=== PATIENT | male | born 1960 | race Caucasian/White ===

== ENCOUNTER 2021-04-19 00:56 | Emergency (ER) | payer OTHER ==
[~2021-04-19] VITALS: Ht 182.9 cm; Wt 77.2 kg
--- NOTE | 2021-04-19 01:30 | PHYS DOC ---
Past History Past Medical History: Hypertension Alcohol Use: Heavy Adult General Chief Complaint Chief Complaint: ALCOHOL INTOXICATION HPI HPI Patient is a very pleasant 61-year-old male with a past medical history significant for colon cancer, status post colon resection with colostomy bag and alcohol intoxication who presents to the emergency department via EMS for suicidal ideation. Patient states he has had a really rough last year with just generalized social situations and family situations that is caused some anxiety and depression. States over the last 30 days he has had fleeting thoughts of committing suicide with fleeting thoughts of using a firearm to do this. Patient states that this bothers him and it scary because he does not want to be but is still having these thoughts. States he came into the emergency department tonight for help. States he wanted to go to the [facility] but they turned him in the ambulance away. Denies any homicidal ideation, or hallucinations. States that he did drink some alcohol today in an attempt to try to numb the way he feels. Denies any recent traumas, travels, chest pain, shortness of breath, abdominal pain, nausea, vomiting, dysuria, hematuria or blood in the stool. States he otherwise feels well. Review of Systems Review of Systems Review of systems otherwise unremarkable except noted in HPI Allergies Allergies Allergies Coded Allergies Type Severity Reaction Last Updated Verified No Known Drug Allergies 04/19/21 No Physical Exam Physical Exam Constitutional: Well developed, well nourished, no acute distress, non-toxic appearance. [] HENT: Normocephalic, atraumatic, bilateral external ears normal, oropharynx moist, no oral exudates, nose normal. [] Eyes: conjunctiva normal, no discharge. [] Neck: Normal range of motion, no tenderness, supple, no stridor. [] Cardiovascular:Heart rate regular rhythm, no murmur [] Lungs & Thorax: Bilateral breath sounds clear to auscultation [] Abdomen: Bowel sounds normal, soft, no tenderness, ostomy bag with brown stool, no masses, no pulsatile masses. [] Skin: Warm, dry, no erythema, no rash. [] Back: No tenderness, no CVA tenderness. [] Extremities: No tenderness, no cyanosis, no clubbing, ROM intact, no edema. [] Neurologic: Alert and oriented X 3, normal motor function, normal sensory function, no focal deficits noted. [] Psychologic: Affect tearful, intermittent thoughts of suicidal ideation and intermittent plans of using a firearm to do this. Patient states however that he really does not want to be and it scares him to have his thoughts and wants to talk to somebody about it. Current Patient Data Vital Signs Vital Signs Date Time Temp Pulse Resp B/P (MAP) Pulse Ox O2 Delivery O2 Flow Rate FiO2 04/19/21 01:10 98.0 98 18 148/70 (96) 98 Room Air EKG EKG [] Radiology/Procedures Radiology/Procedures [] Heart Score C/O Chest Pain: No Risk Factors: Risk Factors: DM, Current or recent (<one month) smoker, HTN, HLP, family history of CAD, obesity. Risk Scores: Risk Factors: DM, Current or recent (<one month) smoker, HTN, HLP, family history of CAD, obesity. Course & Med Decision Making Course & Med Decision Making Patient is a 61-year-old male who presents with a chief complaint of anxiety, depression and intermittent suicidal ideations and thoughts of using a firearm to commit suicide Vital signs not concerning. Physical exam noted above. Psychiatric assessment team made aware patient and evaluated patient. Laboratory analysis not concerning. Toxicology notable for alcohol level of 345. Covid negative. PAT team discussed patient with [facility] who agreed to accept patient for continued evaluation and treatment of anxiety/depression and SI. Patient grateful, verbalized understanding and agreed with plan of transfer. Patient given meal in ED. [] Dragon Disclaimer Dragon Disclaimer This electronic medical record was generated, in whole or in part, using a voice recognition dictation system. Departure Departure: Impression: Primary Impression: Suicidal ideation Additional Impressions: Anxiety Depression Alcohol abuse [facility] Condition: GOOD Problem Qualifiers MEHUL OCHOA MD Apr 19, 2021 01:30
[2021-04-19 02:52] LABS: BASO # 0.1 x10^3/uL (0.0-0.2); BASO % 1 % (0-3); EOS # 0.1 x10^3/uL (0.0-0.7); EOS % 1 % (0-3); HEMATOCRIT 45.9 % (39.0-53.0); HEMOGLOBIN 15.3 g/dL (13.0-17.5); LYMPH # 3.7 x10^3/uL (1.0-4.8); LYMPH % 49 % (24-48); MEAN CORPUSCULAR HEMOGLOBIN 31 pg (25-35); MEAN CORPUSCULAR HGB CONC 33 g/dL (31-37); MEAN CORPUSCULAR VOLUME 92 fL (79-100); MONO # 0.5 x10^3/uL (0.0-1.1); MONO % 7 % (0-9); NEUT # 3.2 x10^3uL (1.8-7.7); NEUT % 42 % (31-73); PLATELET COUNT 276 x10^3/uL (140-400); RED BLOOD COUNT 5.02 x10^6/uL (4.30-5.70); RED CELL DISTRIBUTION WIDTH 15.7 % (11.5-14.5); WHITE BLOOD COUNT 7.6 x10^3/uL (4.0-11.0)
[2021-04-19 03:01] LABS: CALCIUM 7.9 mg/dL (8.5-10.1); CREATININE 0.8 mg/dL (0.7-1.3); GFR 98.3; POTASSIUM 3.7 mmol/L (3.5-5.1)
[2021-04-19 03:06] LABS: ALBUMIN 3.7 g/dL (3.4-5.0); ALBUMIN/GLOBULIN RATIO 0.8 (1.0-1.7); TOTAL BILIRUBIN 0.2 mg/dL (0.2-1.0); TOTAL PROTEIN 8.4 g/dL (6.4-8.2)
[2021-04-19 03:08] LABS: ETHANOL 345 mg/dL (0-10); SALIC 4.3 mg/dL (2.8-20.0)
[2021-04-19 03:09] LABS: ACETAMIN < 2.0 mcg/mL (10-30)
[2021-04-19 05:01] LABS: BARBITURATES NEG (NEG); BENZODIAZEPINES NEG (NEG); CANNABINOIDS NEG (NEG); COCAINE NEG (NEG); METHADONE NEG (NEG); OPIATES NEG (NEG); PHENCYCLIDINE NEG (NEG)
[2021-04-19 05:06] LABS: AMPHETAMINE/METHAMPHETAMINE NEG (NEG)
[2021-04-19 08:27] VITALS: BP 141/87
== END 2021-04-19 09:23 ==
LOC: ER 00:56
DX: R45.851 Suicidal ideations (principal); F32.9 Major depressive disorder, single episode, unspecified; F41.9 Anxiety disorder, unspecified; F10.10 Alcohol abuse, uncomplicated; I10 Essential (primary) hypertension; Z20.822 Contact with and (suspected) exposure to COVID-19; Y90.8 Blood alcohol level of 240 mg/100 ml or more
CPT/HCPCS: 36415; 80053; 80307; 80329; 85025; 87426; 99285; C9803; G0480; U0003

== ENCOUNTER 2021-07-15 20:08 | Emergency (ER) | payer OTHER ==
[~2021-07-15] VITALS: Ht 182.9 cm; Wt 80.0 kg
--- NOTE | 2021-07-15 21:29 | PHYS DOC ---
Past History Past Medical History: Hypertension Additional Past Medical Histor: fistula-abdominal Past Medical History Tremor's Torticolli Colon cancer status post surgery x3and chemotherapy Past Surgical History: Cancer Surgery, Colectomy, Other Additional Past Surgical Histo: colostomy; fistula from surgery Alcohol Use: Rarely General Adult EDM: Chief Complaint: TREMORS HPI: HPI: ". I think I had a syncope event.. I don't know how long.. " Patient is a 61 year old male who presents with hx of syncope and tremors. Patient has somewhat a complex medical history with diagnosis of colon cancer . Pt. underwent 3 cancer surgeries at and then a chemotherapy x1. Patient also had somewhat chronic torticollis and has been on Botox treatments. Patient has been feeling somewhat " under the weather" the last 2 days. Pt. has had Moderna x 2. No recent travel. No specific ill contacts. No history immunosuppression. Patient has past medical history of insomnia, essential tremor, alcohol dependence, psychoactive substance use, dental caries, torticollis, hypertension, hyperlipidemia, cervical neuropathy, sleep apnea, tobacco use, colon cancer, dehiscence of surgical wound, adjustment disorder, anxiety, hearing loss, tinnitus, cervical dystonia, colostomy fistula,,. Patient follows with [facility] for care. Patient also follows with at . Review of Systems: Review of Systems: Constitutional: Denies fever or chills Eyes: Denies change in visual acuity HENT: Denies nasal congestion or sore throat Respiratory: Denies cough or shortness of breath Cardiovascular: Denies chest pain or edema GI: Denies abdominal pain, nausea, vomiting, bloody stools or diarrhea : Denies dysuria Musculoskeletal: Denies back pain or joint pain Integument: Denies rash Neurologic: Denies headache, focal weakness or sensory changes. Complains of a syncopal episode Endocrine: Denies polyuria or polydipsia Lymphatic: Denies swollen glands Psychiatric: Denies depression or anxiety Family History: Family History: Noncontributory to presentation Current Medications: Current Meds: See nursing for home meds Allergies: Allergies: Allergies Coded Allergies Type Severity Reaction Last Updated Verified No Known Drug Allergies 04/19/21 No Physical Exam: PE: Constitutional: , no acute distress, non-toxic appearance. [] HENT: Normocephalic, atraumatic, bilateral external ears normal, oropharynx moist, no oral exudates, nose normal. [] Eyes: PERRLA, EOMI, conjunctiva normal, no discharge. [] Neck: Limited range of motion, no tenderness, supple, no stridor. Chronic torticollis Cardiovascular: Tachycardia heart rate regular rhythm, no murmur [] Lungs & Thorax: Bilateral breath sounds equal apex few scattered wheezes au scultation [] Abdomen: Bowel sounds normal, soft, no tenderness, no masses, no pulsatile masses. Spine. Surgical scars. Skin: Warm, dry, no erythema, no rash. [] Back: No tenderness, no CVA tenderness. [] Extremities: No tenderness, no cyanosis, no clubbing, ROM intact, no edema. No cording appreciated Neurologic: Alert and oriented X 3, moves all extremities on request, does have a distal sensory,, no focal deficits noted. Persistent coarse tremor. Exacerbated by attempts at fine motor movement Psychologic: Affect anxious, judgement normal, mood normal. [] Current Patient Data: Vital Signs: Vital Signs Date Time Temp Pulse Resp B/P (MAP) Pulse Ox O2 Delivery O2 Flow Rate FiO2 07/15/21 20:10 99.0 94 24 135/78 (97) 97 Room Air EKG: EKG: My interpretation EKG shows a sinus rhythm 92 bpm. There is a wavering baseline but monitor does show a sinus rhythm. No findings of acute STEMI contralateral changes. Time of EKG is 2105 hrs. [] Radiology/Procedures: Radiology/Procedures: [][address] [address] IMAGING REPORT Signed PATIENT: YANIQUE COX ACCOUNT: [id number] : 1960 LOCATION: ER AGE: 61 SEX: M EXAM STATUS: REG ER ORD. PHYSICIAN: SOLOMON SHIELDS MD REASON: syncope, H/O SMOKING PROCEDURE: CHEST PA & LATERAL Exam: Chest 2 views INDICATION: Syncope TECHNIQUE: Frontal and lateral views the chest Comparisons: None FINDINGS: Right anterior chest wall port with catheter tip at the SVC. The cardiomediastinal silhouette and pulmonary vessels are within normal limits. Patchy bibasilar airspace disease. No pleural effusion. IMPRESSION: Patchy bilateral airspace disease may be infectious or inflammatory in etiology. Electronically signed by: Jose Lovell MD (07/15/2021 10:36 PM) MAR[facility] DICTATED AND SIGNED BY: JOSE LOVELL MD DATE: 07/15/21 485 CC: SOLOMON SHIELDS MD; NON,STAFF ~MTH0 0 [facility] [address] [place] [address] IMAGING REPORT Signed PATIENT: YANIQUE COX ACCOUNT: [id number] : 1960 LOCATION: ER AGE: 61 SEX: M EXAM STATUS: REG ER ORD. PHYSICIAN: SOLOMON SHIELDS MD REASON: neck pain, torcolis PROCEDURE: CT HEAD AND CERVICAL SPINE WO Exam: CT head and cervical spine without contrast INDICATION: Neck pain TECHNIQUE: Sequential axial images through the head and cervical spine were obtained without the administration of IV contrast. Exposure: One or more of the following in the visualized dose reduction techniques were utilized for this examination: 1. Automated exposure control 2. Adjustment of the MA and/or KV according to patient size 3. Use of iterative of reconstructive technique Comparisons: None FINDINGS: Head: No focal parenchymal lesion or hemorrhage is identified. There is no midline shift or sulcal effacement. No acute vascular territory infarction is identified. Tracy-white distinction is preserved. The ventricular system is within normal limits without compression hydrocephalus. The basal cisterns are well maintained. Mild mucosal thickening of the left maxillary sinus.. No acute fractures. Cervical spine: Vertebral body heights and alignment are well-maintained. Fracture through the cervical spine is is not identified. Multilevel spondylotic change in cervical spine with degenerative disc disease greatest at C3-C4, C4-C5 and C5-C6. Mild bilateral facet arthropathy is also noted in the cervical spine, greatest on the right at C3-C4, C4-C5 and C5-C6. Visualized paraspinal soft tissues are unremarkable. IMPRESSION: 1. No acute intracranial abnormality. Sinus disease as described above. 2. Negative CT C-spine for acute traumatic injury. Electronically signed by: Jose Lovell MD (07/15/2021 10:33 PM) MAR[facility]O DICTATED AND SIGNED BY: JOSE LOVELL MD DATE: 07/15/212229 CC: SOLOMON SHIELDS MD; NON,STAFF ~MTH0 0 Heart Score: C/O Chest Pain: No HEART Score for Chest Pain: HEART Score for Chest Pain Response (Comments) Value History Slighlty/Non-Suspicious 0 ECG Normal 0 Age >45 - < 65 1 Risk Factors 1 or 2 Risk Factors 1 Troponin < Normal Limit 0 Total 2 Risk Factors: Risk Factors: DM, Current or recent (<one month) smoker, HTN, HLP, family history of CAD, obesity. Risk Scores: Score 0 - 3: 2.5% MACE over next 6 weeks - Discharge Home Score 4 - 6: 20.3% MACE over next 6 weeks - Admit for Clinical Observation Score 7 - 10: 72.7% MACE over next 6 weeks - Early Invasive Strategies Course & Med Decision Making: Course & Med Decision Making Pertinent Labs and Imaging studies reviewed. (See chart for details) [facility] . [facility] Patient take a daily aspirin. Patient follow-up at neuro clinic. Keep follow-up for Botox injection. Review hypertensive meds with primary care. Return if any concerns. Impression: 1. Syncopal event 2. Essential tremor 3. Thrombocytopenia 110 4. History of colon cancer.-Resection x3 and chemotherapy 5. Hypertension 6. History of alcohol abuse [] Dragon Disclaimer: Dragon Disclaimer: This electronic medical record was generated, in whole or in part, using a voice recognition dictation system. Departure Departure: Referrals: NON,STAFF (PCP) Dragon Disclaimer This chart was dictated in whole or in part using Voice Recognition software in a busy, high-work load, and often noisy Emergency Department environment. It may contain unintended and wholly unrecognized errors or omissions. Dragon Disclaimer This chart was dictated in whole or in part using Voice Recognition software in a busy, high-work load, and often noisy Emergency Department environment. It may contain unintended and wholly unrecognized errors or omissions. SOLOMON SHIELDS MD Jul 15, 2021 21:29
--- NOTE | 2021-07-15 21:44 | EKG ---
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
[2021-07-15 22:26] LABS: BASO # 0.1 x10^3/uL (0.0-0.2); BASO % 1 % (0-3); EOS % 0 % (0-3); HEMATOCRIT 42.6 % (39.0-53.0); HEMOGLOBIN 14.4 g/dL (13.0-17.5); LYMPH # 1.9 x10^3/uL (1.0-4.8); LYMPH % 18 % (24-48); MEAN CORPUSCULAR HEMOGLOBIN 31 pg (25-35); MEAN CORPUSCULAR HGB CONC 34 g/dL (31-37); MEAN CORPUSCULAR VOLUME 91 fL (79-100); MONO # 0.6 x10^3/uL (0.0-1.1); MONO % 6 % (0-9); NEUT # 8.1 x10^3uL (1.8-7.7); NEUT % 76 % (31-73); PLATELET COUNT 326 x10^3/uL (140-400); RED BLOOD COUNT 4.69 x10^6/uL (4.30-5.70); RED CELL DISTRIBUTION WIDTH 14.3 % (11.5-14.5); WHITE BLOOD COUNT 10.7 x10^3/uL (4.0-11.0)
--- NOTE | 2021-07-15 22:35 | RAD ---
Exam: CT head and cervical spine without contrast INDICATION: Neck pain TECHNIQUE: Sequential axial images through the head and cervical spine were obtained without the admi nistration of IV contrast. Exposure: One or more of the following in the visualized dose reduction techniques were utilized for this examination: 1. Automated exposure control 2. Adjustment of the MA and/or KV according to patient size 3. Use of iterative of reconstructive technique Comparisons: None FINDINGS: Head: No focal parenchymal lesion or hemorrhage is identified. There is no midline shift or sulcal effaceme nt. No acute vascular territory infarction is identified. Tracy-white distinction is preserved. The ventricular system is within normal limits without compression hydrocephalus. The basal cisterns are well maintained. Mild mucosal thickening of the left maxillary sinus.. No acute fractures. Cervical spine: Vertebral body heights and alignment are well-maintained. Fracture through the cervical spine is is not identified. Multilevel spondylotic change in cervical spine with degenerative disc disease greatest at C3-C4, C4- C5 and C5-C6. Mild bilateral facet arthropathy is also noted in the cervical spine, greatest on the r ight at C3-C4, C4-C5 and C5-C6. Visualized paraspinal soft tissues are unremarkable. IMPRESSION: 1. No acute intracranial abnormality. Sinus disease as described above. 2. Negative CT C-spine for acute traumatic injury. Electronically signed by: Jose Zamudio MD (07/15/2021 10:33 PM) [facility]
[2021-07-15 22:37] LABS: CALCIUM 8.5 mg/dL (8.5-10.1); CREATININE 0.7 mg/dL (0.7-1.3); GFR 114.6; POTASSIUM 4.3 mmol/L (3.5-5.1)
--- NOTE | 2021-07-15 22:38 | RAD ---
Exam: Chest 2 views INDICATION: Syncope TECHNIQUE: Frontal and lateral views the chest Comparisons: None FINDINGS: Right anterior chest wall port with catheter tip at the SVC. The cardiomediastinal silhouette and pulmonary vessels are within normal limits. Patchy bibasilar airspace disease. No pleural effusion. IMPRESSION: Patchy bilateral airspace disease may be infectious or inflammatory in etiology. Electronically signed by: Jose Zamudio MD (07/15/2021 10:36 PM) JULIA
[2021-07-15 22:50] LABS: MAGNESIUM 2.1 mg/dL (1.8-2.4)
[2021-07-16] MEDS ORDERED: ALBUTEROL SULFATE 8GM INHALER. INH ONE (00:30)
[2021-07-16 00:57] LABS: BARBITURATES NEG (NEG); BENZODIAZEPINES NEG (NEG); CANNABINOIDS NEG (NEG); COCAINE NEG (NEG); METHADONE NEG (NEG); OPIATES NEG (NEG); PHENCYCLIDINE NEG (NEG)
[2021-07-16 01:01] LABS: BACTERIA,URINE 0 /HPF (0-FEW); BILIRUBIN,URINE NEG (NEG); CLARITY,URINE CLEAR; COLOR,URINE YELLOW; GLUCOSE,URINE NEG (NEG); NITRITE,URINE NEG (NEG); RBC,URINE 0 /HPF (0-2); SQUAMOUS EPITHELIAL CELL,UR OCC /LPF; UROBILINOGEN,URINE 0.2 mg/dL (0.2 mg/dL); WBC,URINE OCC /HPF (0-4)
[2021-07-16 01:02] LABS: AMPHETAMINE/METHAMPHETAMINE NEG (NEG)
[2021-07-16 01:15] VITALS: BP 129/70
--- NOTE | 2021-07-17 12:14 | NUR ---
IP: Informed pt of negative covid results. Pt verbalized understanding.
== END 2021-07-16 01:30 | disposition home or self-care (01) ==
LOC: ER 20:08
DX: R55 Syncope and collapse (principal); G25.0 Essential tremor; D69.6 Thrombocytopenia, unspecified; I10 Essential (primary) hypertension; F10.10 Alcohol abuse, uncomplicated; E78.5 Hyperlipidemia, unspecified; Z20.822 Contact with and (suspected) exposure to COVID-19; Z85.038 Personal history of other malignant neoplasm of large intestine; Z90.49 Acquired absence of other specified parts of digestive tract; Y90.0 Blood alcohol level of less than 20 mg/100 ml
CPT/HCPCS: 36415; 70450; 71046; 72125; 80048; 80307; 81001; 82550; 83735; 83880; 84484; 85025; 85610; 85730; 93005; 94640; 96374; 99285; C9803; J2060; U0003; 94664